=== PATIENT | male | born 1985 | race African-American/Black ===

== ENCOUNTER 2020-05-28 10:32 | Emergency (ER) | payer OTHER, SELFPAY ==
[2020-05-28 10:28] VITALS: BP 129/88; PULSE 73; RESP 14; TEMP 36.8; O2SAT 100
[2020-05-28] MEDS: SODIUM CHLORIDE 0.9% IV 1,000 ML 999 ML IV CONT (11:04)
[2020-05-28 11:14] LABS: Basophils Percent Auto 0.5 % (0.2-1.2); Eosinophils Absolute Auto 0.1 K/mm3 (0-0.3); Eosinophils Percent Auto 1.3 % (0-4.4); Hematocrit 40.1 % (42.0-52.0); Immature Granulocyte Absolute 0.03 K/mm3 (0.00-0.031); Immature Granulocyte Percent A 0.4 % (0-0.5); Lymphocytes Absolute Auto 2.25 K/mm3 (0.9-3.2); Lymphocytes Percent Auto 26.6 % (18.3-44.2); Mean Corpuscular HGB Conc 34.9 g/dl (32-36); Mean Corpuscular Hemoglobin 32.8 pg (26-34); Mean Corpuscular Volume 93.9 fl (80-100); Mean Platelet Volume 10.9 fl (7.4-10.4); Monocytes Absolute Auto 0.4 K/mm3 (0.1-0.6); Monocytes Percent Auto 4.8 % (2.6-8.5); Neutrophils Absolute Auto 5.6 K/mm3 (1.3-6.7); Neutrophils Percent Auto 66.4 % (45.5-73.1); Platelet Count Result 165 k/mm3 (150-375); Red Blood Count 4.27 M/mm3 (4.6-6.20); Red Cell Distribution Width 11.4 % (11.5-14.5); White Blood Count 8.5 K/mm3 (4.5-10.0)
--- NOTE | 2020-05-28 11:22 | ED.BACK ---
HPI - Back Pain/Injury General Chief Complaint: Back Pain/Injury Stated Complaint: back pain Time Seen by Provider: 05/28/20 10:38 Source: patient Mode of arrival: ambulatory Limitations: no limitations History of Present Illness HPI Narrative: Patient is a 35-year-old male who presents to room for evaluation of testicular pain noting right sided testicular pain 2 days ago went to outside hospital and was found to have epididymal orchitis patient was unsure as to the details of his evaluation noting that he did not get a good information from the hospital regarding his results patient notes that he did state that he had epididymoorchitis and was sent home on antibiotics patient notes he continues to have some mild discomfort of the testicle and any other he initially and had some lower abdominal pain and back pain which have improved patient denies fever chills nausea vomiting on arrival patient resting comfortably in the room in no distress Related Data Home Medications Medication Instructions Recorded Confirmed Unable to Obtain Home Medications 05/28/20 05/28/20 Allergies Allergy/AdvReac Type Severity Reaction Status Date / Time No Known Allergies Allergy Verified 05/28/20 10:34 Review of Systems Review of Systems: All systems reviewed & are unremarkable except as noted in HPI and below PMFSH Surgical History Surgical History (Updated 05/28/20 @ 11:37 by Yves Mullen PA-C) History of facial surgery Social History Social History (Updated 05/28/20 @ 11:38 by Yves Mullen PA-C) Smoking status: Never smoker Gender identity (if verbalized by the patient): Male Exam Narrative: Exam Narrative: GENERAL: Well-appearing, well-nourished, and in no acute distress. HEAD: Normocephalic, atraumatic. EYES: PERRLA and EOMI. ENT: Nares clear, no rhinorrhea or epistaxis. Mucous membranes moist. CHEST: Clear to auscultation. No respiratory distress. No wheezes rales or rhonchi HEART: Regular rate and rhythm. No murmur heard. Normal peripheral pulses. ABDOMEN: Soft, nontender, nondistended EXTREMITIES: Normal range of motion. No edema. SKIN: Warm, dry, no rash. NEURO: No focal deficits. Alert and oriented x3. PSYCH: Normal mood and affect. Course Course Emergency Course: Patient in the room in no distress aware of case findings treatment plan and diagnosis resting comfortably in the room will be discharged at this time feeling better with interventions and agrees to follow-up as instructed Vital Signs Vital signs: Vital Signs Temperature 98.2 F 05/28/20 10:28 Pulse Rate 73 05/28/20 10:28 Respiratory Rate 14 05/28/20 10:28 Blood Pressure 129/88 05/28/20 10:28 Pulse Oximetry 100 05/28/20 10:28 Temperature 98.2 F 05/28/20 11:29 Pulse Rate 73 05/28/20 10:28 Respiratory Rate 14 05/28/20 10:28 Blood Pressure 129/88 05/28/20 10:28 Pulse Oximetry 100 05/28/20 10:28 MDM - Back Pain/Injury MDM Narrative Medical decision making narrative: Patient with likely epididymal orchitis will be referred to primary care and urology for further evaluation afebrile nontoxic-appearing no distress felt appropriate for outpatient reevaluation agreeing to return if symptoms worsen Lab Data Result diagrams: 05/28/20 11:02 05/28/20 11:02 Labs: Lab Results 05/28/20 05/28/20 05/28/20 Range/Units 11:02 11:02 11:02 WBC 8.5 (4.5-10.0) K/mm3 RBC 4.27 L (4.6-6.20) M/mm3 Hgb 14.0 (14.0-18.0) g/dL Hct 40.1 L (42.0-52.0) % MCV 93.9 (80-100) fl MCH 32.8 (26-34) pg MCHC 34.9 (32-36) g/dl RDW 11.4 L (11.5-14.5) % Plt Count 165 (150-375) k/mm3 MPV 10.9 H (7.4-10.4) fl Immature Gran % (Auto) 0.4 (0-0.5) % Neut % (Auto) 66.4 (45.5-73.1) % Lymph % (Auto) 26.6 (18.3-44.2) % [place] % (Auto) 4.8 (2.6-8.5) % Eos % (Auto) 1.3 (0-4.4) % Baso % (Auto) 0.5 (0.2-1.2) % Lymph # (Auto) 2.25 (0.
[2020-05-28 11:23] LABS: Add Urine Microscopic? NO; Appearance Urine Clear (Clear); Bilirubin Urine Negative (Negative); Blood Urine Negative (Negative); Color Urine Straw (Yellow); Glucose Urine UA Negative (Negative); Ketones Urine Negative (Negative); Leukocyte Esterase Ur Negative LEU/UL (Negative); Nitrate Urine Negative (Negative); Protein Urine Negative (Negative); RBC Urine 0-2 /hpf (0-2); Specific Grav Ur 1.009 (1.001-1.035); Urobilinogen Urine Negative mg/dL (<2.0); WBC Urine 0-3 /hpf
[2020-05-28 11:26] LABS: Alanine Aminotransferase 19 U/L (4-50); Albumin Level 3.7 g/dL (3.5-5.1); Alkaline Phosphatase 45 U/L (38-126); Anion Gap 5 mmol/L (8-16); Aspartate Amino Transferase 26 U/L (17-59); Bilirubin,Total 0.6 mg/dL (0.2-1.3); Blood Urea Nitrogen 13 mg/dL (9-20); Calcium 8.4 mg/dL (8.4-10.2); Carbon Dioxide 26 mmol/L (22-30); Chloride 105 mmol/L (98-107); Estimated CRCL calculation 101 ml/min; Estimated Glomerular Filt Rate > 60; Glucose 105 mg/dL (75-110); Potassium 4.5 mmol/L (3.4-5.0); Sodium 136 mmol/L (137-145)
[2020-05-28 11:29] VITALS: TEMP 36.8
[2020-05-28 13:19] VITALS: BP 136/88; PULSE 74; RESP 14; O2SAT 99
== END 2020-05-28 13:37 | disposition home or self-care (01) ==
PROVIDERS: Emergency Medicine Emergency Medical Services; Emergency Provider Emergency Medicine
DX: N45.3 Epididymo-orchitis (principal)
CPT/HCPCS: 36415; 80053; 81003; 85025; 87491; 87591; 96365; 96368; 99284; J0131; J0696; J7030